=== PATIENT | male | born 1935 | race Caucasian/White ===

== ENCOUNTER 2024-04-24 07:46 | Emergency (ER) | payer OTHER, SELFPAY ==
[2024-04-24] VITALS (14 sets, daily range): BP systolic 92–141; BP diastolic 59–89; BMI 16.2
[2024-04-24 08:02] LABS: Glucose - Point of Care 138 mg/dl (70-99)
[2024-04-24 08:22] LABS: % Basophils 0.1 % (0-2); % Immature Granulocytes 0.6 % (0-0.5); % Lymphocytes 4.9 % (20.5-51.1); % Monocytes 11.6 % (1.7-9.3); % Neutrophils 82.8 % (42.2-75.2); Absolute Immature Granulocytes 0.1 10^3/uL (0-0.05); Absolute Lymphocytes 1.1 10^3/uL (1.2-3.4); Absolute Monocytes 2.5 10^3/uL (0.1-0.6); Absolute Neutrophils 17.7 10^3/uL (1.4-6.5); Hematocrit 32.4 % (39.0-52.0); Hemoglobin 10.6 g/dL (13.0-18.0); Mean Corp Hgb Conc. 32.7 g/dL (33.0-37.0); Mean Corpuscular Hgb 32.6 pg (27.0-31.0); Mean Corpuscular Volume 99.7 fL (80.0-94.0); Mean Platelet Volume 9.9 fL (7.4-10.4); Nucleated Red Blood Cells % 0 % (-); Platelet Count 254 10^3/uL (130-400); Red Blood Cell Count 3.25 10^6/uL (4.70-6.10); Red Cell Dist. Width 14.6 % (11.5-14.5); White Blood Cell Count 21.4 10^3/uL (4.8-10.8)
--- NOTE | 2024-04-24 08:24 | ED.GENMED ---
History of Present Illness
General
Chief Complaint: Unresponsive
Source: patient, records and family
Exam Limitations: clinical condition
Time Seen by Provider: 04/24/24 07:53
Nursing documentation reviewed up to this point in time: agreed with
Travel History
Have you had any contact with someone who has COVID-19?: No
Do you have any symptoms of coronavirus? Fever > 100 degrees, chills, cough, shortness of breath, sore throat, loss of taste or smell, muscle aches, or headache?: No
History of Present Illness
History of Present Illness:
89-year-old male recently admitted to a local care facility presents with mental status change, low pulse ox low blood pressure I did receive a call from EMS patient has an advanced directive states he is DNR I did call his son who confirmed this,
he is en route to the ER
The patient's son did come to the ER last night states his father was in his normal state of health he was calm percent talking about some issues with an apartment that he is in the process of selling,
Past History
Past History
ED Past Medical History: Other (Dementia prior stroke)
Social History
Tobacco: Non-smoker
Alcohol: None
Drug: None
Living: long term
Employment: Not employed
Family History
Family History: Unable to obtain (Patient nonverbal)
Review of Systems
Review of Systems
Allergies reviewed?: Yes
Unable to obtain full review of systems at this time due to: due to acuity
Other source history: family and transfer record
All Other Systems: Not applicable
Phy Exam
Physical Exam
Physical Exam:
Physical Exam
General: Lethargic stuporous male
Neck: Lips are dry, pupils 1-2 OU
Heart: Regular
Lungs: Rhonchi right greater than left
Abdomen: Nontender
Neuro: Minimally responsive looking to the right
Skin: no rash
Psychiatric: Unable to assess
Extremities: No edema
Course
Orders/Labs/Results
Orders:
Orders
04/24/24 07:49
Electrocardiogram (*1) Urgent
Reason for Study: Other
Other Reason for Exam: Respiratory Distress
Cardiac Monitoring- Treatment ONCE
EKG- Treatment ONCE
IV Insert/Care/Rem.- Treatment PRN
04/24/24 07:53
Naloxone [Narcan] 0.4 mg IV NOW STA
04/24/24 07:54
Naloxone [Narcan] 0.4 mg .ROUTE .STK-MED ONE
04/24/24 08:05
Basic Metabolic Panel Urgent
Complete Blood Count/With Diff Urgent
04/24/24 08:07
Lactate Level [Lactic Acid] Urgent
04/24/24 08:47
CR Chest Portable - 1 View Urgent
Comment:
Reason For Exam: sob
Reason Study Needs to be Portable: Patient Unstable
04/24/24 09:08
CT Head W/o Iv Contrast Urgent
Comment:
Reason For Exam: stupor
04/24/24 09:20
Straight cath- Treatment ONCE
Urinalysis Reflex To Culture Urgent
0.9% Sodium Chloride 1000 ml [Nss] 1,600 ml IV NOW STA
Piperacillin/Tazo 3.375 Gram [Zosyn] 3.375 gram in 50 ml IV NOW
04/24/24 09:52
Blood Culture Q30M
MAGDY Source: Blood/Venous
Specimen Description:
04/24/24 10:30
Blood Culture Q30M
MAGDY Source: Blood/Venous
Specimen Description:
04/24/24 10:33
Morphine Sulfate See Protocol IV [id number] PRN
Begin protocol on step:: refer to Morphine infusion order
04/24/24 10:35
Case Management Consult ONCE
Case Management Consult: Hospice
Hospice: Evaluation and treat
04/24/24 10:45
Morphine Sulfate 100 mg/100 ml [Morphine] 100 mg in 100 ml IV PER PROTOCOL
Begin protocol on step:: 2
04/24/24 11:[address] See Dose Instructions IV DIRECTED
Abnormal Lab Results
04/24/24 04/24/24 04/24/24
08:01 08:05 08:07
WBC 21.4 H 10^3/uL
(4.8-10.8)
RBC 3.25 L 10^6/uL
(4.70-6.10)
Hgb 10.6 L g/dL
(13.0-18.0)
Hct 32.4 L %
(39.0-52.0)
MCV 99.7 H fL
(80.0-94.0)
MCH 32.6 H pg
(27.0-31.0)
MCHC 32.7 L g/dL
(33.0-37.0)
RDW 14.6 H %
(11.5-14.5)
Abs Immat Gran (auto) 0.1 H 10^3/uL
(0-0.05)
Absolute Neuts (auto) 17.7 H 10^3/uL
(1.4-6.5)
Absolute Lymphs (auto) 1.1 L 10^3/uL
(1.2-3.4)
Absolute Monos (auto) 2.5 H 10^3/uL
(0.1-0.6)
Immature Gran % 0.6 H %
(0-0.5)
Neutrophils % 82.8 H %
(42.2-75.2)
Lymphocytes % 4.9 L %
(20.5-51.1)
Monocytes % 11.6 H %
(1.7-9.3)
BUN 32 H mg/dl
(9-20)
Glucose 145 H mg/dl
(70-99)
Lactic Acid 3.3 H mmol/L
(0.7-2.0)
Calcium 7.8 L mg/dl
(8.4-10.2)
POC Glucose 138 H mg/dl
(70-99)
04/24/24 08:05
04/24/24 08:05
Vital Signs
Initial and Last Documented VS:
Initial Vital Signs
BP
106/59
04/24/24 07:49
Last Documented Vital Signs
Temp Pulse Resp BP Pulse Ox
99 F 89 23 115/65 100
04/24/24 08:29 04/24/24 10:16 04/24/24 10:16 04/24/24 10:16 04/24/24 10:15
MDM/Problems Addressed
Differential Diagnosis Includes:
Infection aspiration hypercarbia stroke
MDM/Problems Addressed:
Confusion
Chronic conditions affecting care:
Dementia
Acute Exacerbation and/or Progression of Chronic Illness:
Dementia
*Radiology
Radiology exam reviewed: radiology read reviewed
*Pulse Oximetry
Patient hypoxic: yes
*EKG
Interpreted by ED Provider?: Yes
Interpretation: abnormal
Comparison EKG: no comparison EKG present
Heart Rate: 88
Rate: normal
Rhythm: sinus
Ischemia: non-specific ST changes
*Freight Broker Interpretation
Rate: normal
Interpretation: normal
Heart Rate: 99
Rhythm: sinus
*Critical Care Note
Total Time (30-74mins, 75-104mins- exclusive of procedures): 32
Data Reviewed
Review of Other/Old Records Reveals: Labs
Source: family and long term records
Update Note
Update Note:
Update I was in touch with the patient's immediately after patient's presentation confirmed DNR status patient came to the bedside shared decision making will not be intubated or shocked son is okay with fluids antibiotics etc.
CRITICAL CARE STATEMENT: A total of 32 minutes of critical care time was provided for this patient. This includes management of unstable vital signs, evaluation of the patient at bedside, reviewing the patient's pertinent medical records discussion
with EMS providers and patient's family in addition to discussion with consultants, review of old EKGs and review of pertinent medical records. This time with separate from time utilized to perform the aforementioned documented procedures
Update patient with large intracerebral hemorrhage, reviewed with nursing and patient's son joint decision-making will pursue comfort case management hospitalist notified
ED Attending Note
-
Portions of this chart may have been created with voice recognition software.� Occasional wrong word or��sound alike� substitutions may have occurred due to the inherent limitations of voice recognition software.
Discharge Plan
Departure
Patient Disposition: Admit
Date of Disposition: 04/24/24
Time of Disposition: 10:36
Admit to: Med/Surg
Presentation/result/management discussed w/ accepting MD/DO: Hospitalist
Patient with high blood pressure during this ER visit?: No
Condition: Critical
Covid-19: Not Applicable
Discharge Problem:
Acute intracerebral hemorrhage
Prescriptions:
No Action
atorvastatin [Lipitor] 40 mg Tablet
40 mg PO HS
acetaminophen [Tylenol] 325 mg Tablet
650 mg PO Q6HPRN PRN (Reason: mild pain)
lisinopril 20 mg Tablet
20 mg PO BID
ondansetron HCl [Zofran] 4 mg Tablet
4 mg PO [id number] PRN (Reason: nausea)
aspirin 81 mg Tablet,Delayed Release (Dr/Ec)
81 mg PO DAILY
magnesium hydroxide [Milk of Magnesia] 400 mg/5 mL Suspension
2,400 mg PO [id number] PRN (Reason: if no bm on 3rd day)
meclizine 25 mg Tablet
25 mg PO Q8HPRN PRN (Reason: dizziness)
levothyroxine [Synthroid] 50 mcg Tablet
50 mcg PO DAILY@0600
bisacodyl [Dulcolax (bisacodyl)] 10 mg Suppository
10 mg MN DAILYPRN PRN (Reason: if no bm aftr mom)
PreserVision AREDS 2,148 mcg-113 mg-45 mg-17.4mg Tablet
1 tab PO DAILY
Eliquis 2.5 mg Tablet
2.5 mg PO BID
Referrals:
Ramez Og I., DO [Family Provider] -
Interventions
Interventions:
*Risk Screen - Suicide Last Done: 04/24/24 07:50
*General Assessment Last Done: 04/24/24 07:50
*Neglect/Abuse Screening Last Done: 04/24/24 07:50
ED- Fall Risk Assessment Last Done: 04/24/24 07:50
*ED COVID-19 Vaccine History Last Done: 04/24/24 07:50
ED- Neurological Assessment Last Done: 04/24/24 07:50
Discharge Date and Time
Print Language: RUSSIAN
--- NOTE | 2024-04-24 08:26 | CHAP ---
Addendum entered by Linda Lozada 04/24/24 09:19:
Fr. Thorne was able to provide Last Rites for Mr. Tatum.
Addendum entered by Linda Lozada 04/24/24 08:27:
Fr. Thorne is on his way.
Original Note:
Phone call from Mr. Tatum' son requesting a enamel burner for [facility]/Last Rites. Texted enamel burner, awaiting reply. Son is en route to hospital now.
[2024-04-24 08:39] LABS: Lactic Acid 3.3 mmol/L (0.7-2.0)
[2024-04-24 08:50] LABS: Blood Urea Nitrogen 32 mg/dl (9-20); Calcium 7.8 mg/dl (8.4-10.2); Carbon Dioxide 25 mmol/L (22-30); Chloride 103 mmol/L (98-107); Estimated Creatinine Clearance 40 ml/min; Glucose 145 mg/dl (70-99); Sodium 137 mmol/L (135-145); eGFR > 60.00
[2024-04-24] MEDS: NSS 1600 ML IV (09:42)
--- NOTE | 2024-04-24 10:53 | CM ---
CM reviewed medical records. Patient is from [facility]. CM spoke with grandson in room who is agreeable to hospice consult. CM updated medical care evaluation specialist assembler tester. CM updated bedside RN.
[2024-04-24] MEDS: LEVSIN 0.125 MG PO (11:18)
[2024-04-24] MEDS: MORPHINE SULFATE 2 MG IV ×2 (11:52→12:13)
[2024-04-24] MEDS: MORPHINE 100 IV (12:29)
--- NOTE | 2024-04-24 13:10 | CON.HOSP ---
Family Physician
-
Family Physician: Ramez Og
Chief Complaint
-
unresponsive
History of Present Illness
Patient is 89-year-old male with past medical history of dementia, history of stroke, essential hypertension, hyperlipidemia, ambulatory dysfunction was sent in from [facility] after he was found to be unresponsive. Details
unclear although patient was in his usual state of health last night when family checked. Patient was brought in by EMS and was found to be obtunded/unresponsive. An emergent CT head was done which showed a large right frontal lobe hemorrhagic
CVA. During my evaluation in ER patient was already apneic, bilateral miotic pupil and not responding to painful stimuli. Patient was on nonrebreather. No other reported issues.
Medical History
Past Medical History
Past Medical History: Reports Other
Additional Past Medical History:
history of dementia, history of stroke, essential hypertension, hyperlipidemia, ambulatory dysfunction
Past Surgical History: Reports Other
Social History
Tobacco: Non-smoker
Alcohol: None
Drug: None
Personal:
Living: Assisted Living
Family History
Family History: Reviewed & Not Pertinent
Allergies / Home Medications
Allergies reflects when Allergies were last updated in [facility].
Home Medications with original date entered in [facility] [employer]
Allergy/Medication List:
Allergies
Allergy/AdvReac Type Severity Reaction Status Date / Time
tramadol Allergy Unknown Verified 04/24/24 08:16
Home Medications
acetaminophen 325 mg tablet (Tylenol) 650 mg PO Q6HPRN PRN mild pain 04/24/24
apixaban 2.5 mg tablet (Eliquis) 2.5 mg PO BID Blood Clot Prevention/Tx 04/24/24
aspirin 81 mg tablet,delayed release 81 mg PO DAILY Blood Clot Prevention/Tx 04/24/24
atorvastatin 40 mg tablet (Lipitor) 40 mg PO HS High Cholesterol 04/24/24
bisacodyl 10 mg rectal suppository (Dulcolax (bisacodyl)) 10 mg PA DAILYPRN PRN if no bm aftr mom 04/24/24
levothyroxine 50 mcg tablet (Synthroid) 50 mcg PO DAILY@0600 Thyroid 04/24/24
lisinopril 20 mg tablet 20 mg PO BID Blood Pressure 04/24/24
magnesium hydroxide 400 mg/5 mL oral suspension (Milk of Magnesia) 2,400 mg PO [id number] PRN if no bm on 3rd day 04/24/24
meclizine 25 mg tablet 25 mg PO Q8HPRN PRN dizziness 04/24/24
ondansetron HCl 4 mg tablet 4 mg PO [id number] PRN nausea 04/24/24
vitamins A,C,M-hacj-xeeelc 2,148 mcg-113 mg-45 mg-17.4 mg tablet (PreserVision AREDS) 1 tab PO DAILY Supplement 04/24/24
Review of Systems
-
Unable to obtain full review of systems at this time due to: Patient Non-verbal
Physical Exam
Vital Signs
Vital Signs
Temp Pulse Resp BP Pulse Ox
99 F 44 0 92/65 80
04/24/24 08:29 04/24/24 13:00 04/24/24 13:00 04/24/24 11:00 04/24/24 12:15
Physical Exam
General: No Apparent Distress
HEENT: Atraumatic, Oxygen (on ventimask) and Other (Bilateral pinpoint pupil)
Respiratory: Clear (apnic )
Cardiac: S1/S2 and Regular Rhythm; Negative Murmur or Rub
GI: Soft, Non Tender and Non Distended
Musculoskeletal: No Edema
Skin: Negative Rash
Neuro: Negative Awake or Alert
Laboratory Results
-
Laboratory Results
04/24/24 08:05
04/24/24 08:05
Lactic Acid 3.3 mmol/L (0.7-2.0) H 04/24/24 08:07
Total Bilirubin Cancelled 04/24/24 08:05
AST Cancelled 04/24/24 08:05
ALT Cancelled 04/24/24 08:05
Alkaline Phosphatase Cancelled 04/24/24 08:05
Data Reviewed
-
CT Scan: Image personally visualized and interpreted, Report Reviewed by Me and Discussed with Family
Impression / Plan
-
CT head
Large acute hemorrhage in the right frontal lobe with accompanying large volume hemorrhage throughout the ventricular system and mild midline shift from left to right at the level of the frontal horns of the lateral ventricles. In addition to
dilatation of the ventricular system on the basis of atrophy, some obstructive ventricular dilatation secondary to hemorrhage at the level of the cerebral aqueduct cannot be excluded.
Hemorrhagic CVA
Hypoxic respite insufficiency
Normocytic anemia
Leukocytosis
Elevated glucose
history of dementia
history of stroke
essential hypertension
hyperlipidemia
ambulatory dysfunction
Patient with a large right frontal lobe hemorrhagic CVA and obtunded from it. Patient already apneic and have poor prognosis with underlying dementia.
ER physician discussed prognosis and finding with family and agreeable to comfort care
ER doc involve hospitalist service for comfort care admission although patient imminently dying and comfort care was started in ER.
Patient was given few morphine boluses and was transition to morphine drip later.
Patient on comfort care measures on 04/24/2024 at 1310
Patient family was at bedside at the time.
--- NOTE | 2024-04-24 13:10 | W.PN.DEATH ---
Pronouncement of
-
Called to see patient to pronounce.
No spontaneous heart tones or respirations noted.
Patient not responsive to verbal stimuli.
Patient is pronounced .
Time of : 13:10
Date of : 04/24/24
Cause of : Hemorrhagic stroke
Family Notified: Yes
--- NOTE | 2024-04-24 13:29 | EDRN ---
BRYON @ 1310. pt pronounced by MD. Marty Anna.
== END 2024-04-24 15:01 | disposition still patient (30) ==
LOC: EMR 07:46
PROVIDERS: EMERGENCY PHYSICIAN Emergency Medicine; FAMILY PHYSICIAN Internal Medicine
DX: I61.9 Nontraumatic intracerebral hemorrhage, unspecified (principal); F03.90 Unspecified dementia, unspecified severity, without behavioral disturbance, psychotic disturbance, mood disturbance, and anxiety; D64.9 Anemia, unspecified; D72.829 Elevated white blood cell count, unspecified; E78.00 Pure hypercholesterolemia, unspecified; I10 Essential (primary) hypertension; R09.02 Hypoxemia; Z66 Do not resuscitate; Z79.890 Hormone replacement therapy; Z86.73 Personal history of transient ischemic attack (TIA), and cerebral infarction without residual deficits; Z88.5 Allergy status to narcotic agent
CPT/HCPCS: 99284; 96374; 96375; 96376; 70450; 71045; 80048; 82962; 83605; 85025; 87040; 93005